=== PATIENT | female | born 1990 | race Caucasian/White ===

== ENCOUNTER → 2024-12-31 | Outpatient (CLI) | payer SELFPAY | LOC: M OUTALCOH 08:33 | PROVIDERS: ATTEND Psychiatry & Neurology Psychiatry | DX: F10.10 Alcohol abuse, uncomplicated (principal); F17.200 Nicotine dependence, unspecified, uncomplicated ==

== ENCOUNTER 2025-01-07 12:15 | Outpatient (RCR) | payer SELFPAY | END 2025-01-20 | LOC: M OUTALCOH 12:15 | PROVIDERS: ATTEND Psychiatry & Neurology Psychiatry | DX: F10.10 Alcohol abuse, uncomplicated (principal); F17.200 Nicotine dependence, unspecified, uncomplicated ==

== ENCOUNTER 2025-04-13 16:00 | Outpatient (RCR) | payer OTHER | END 2025-04-22 | LOC: M OUTALCOH 16:00 | PROVIDERS: ATTEND Psychiatry & Neurology Psychiatry | DX: F10.10 Alcohol abuse, uncomplicated (principal); F17.200 Nicotine dependence, unspecified, uncomplicated ==

== ENCOUNTER 2025-05-14 15:42 | Outpatient (RCR) | payer OTHER | END 2025-05-23 | LOC: M OUTALCOH 15:42 | PROVIDERS: ATTEND Psychiatry & Neurology Psychiatry | DX: F10.10 Alcohol abuse, uncomplicated (principal); F17.200 Nicotine dependence, unspecified, uncomplicated ==